=== PATIENT | female | born 1955 | race Caucasian/White ===

== ENCOUNTER 2017-04-26 12:48 | Emergency (ER) | payer MEDICAID ==
--- NOTE | 2017-04-26 13:05 | Emergency Department Record ---
History of Present Illness - General Chief complaint: Extremity Problem Stated complaint: LT LEG THIGH PAIN/NUMBNESS Time Seen by Provider: 04/26/17 12:52 Source: Patient Mode of Arrival: Ambulatory Limitations: No limitations - History of Present Illness Initial comments: 62 yo female presents to ED for evaluation of pain and numbness to the left anterior thigh for the past several days. Patient denies back pain or injury, reports taking Tylenol arthritis which has not helped much. Patient also reports taking left-over Cambridge for her symptoms which helped but worse off after 3 hours or so. Patient denies groin numbness, lower extremity weakness, or urinary retention symptoms. MD Complaint: Extremity pain Onset/Timin -: Days(s) Location: Thigh History of Same: No -: Yes Myalgia Radiation: None Quality: Aching Consistency: Constant Improves with: Nothing Worsens with: Nothing Associated Symptoms: Denies other symptoms - Related Data Home Medications Medication Instructions Recorded Confirmed Last Taken Aspirin [Lo-Dose Aspirin EC] 81 mg PO DAILY 04/26/17 04/26/17 04/26/17 Cetirizine HCl [Zyrtec] 10 mg PO DAILY 04/26/17 04/26/17 04/26/17 Famotidine [Pepcid] 40 mg PO ASDIR 04/26/17 04/26/17 04/26/17 Isosorbide Mononitrate [Imdur] 60 mg PO DAILY 04/26/17 04/26/17 04/26/17 Levothyroxine Sodium [Synthroid] 25 mcg PO DAILY 04/26/17 04/26/17 04/26/17 Lisinopril 20 mg PO DAILY 04/26/17 04/26/17 04/26/17 Metformin HCl [Metformin HCl ER] 500 mg PO DAILY 04/26/17 04/26/17 04/26/17 Metoprolol Succinate [Toprol Xl] 25 mg PO DAILY 04/26/17 04/26/17 04/26/17 Venlafaxine HCl [Venlafaxine HCl 75 mg PO ASDIR 04/26/17 04/26/17 04/26/17 ER] Previous Rx's Medication Instructions Recorded Hydrocodone/Acetaminophen [Cambridge 1 tab PO Q6H PRN #15 tab 04/26/17 10mg/325mg] Prednisone [Prednisone 20Mg] 20 mg PO BID #10 tab 04/26/17 Allergies Allergy/AdvReac Type Severity Reaction Status Date / Time shellfish derived Allergy HIVES Verified 04/26/17 13:03 [id number]-[id number] Reductase Allergy HIVES Verified 04/26/17 13:03 Inhibitor Review of Systems Constitutional: Denies: Chills, Fever, Malaise, Night sweats Eyes: Denies: Eye discharge, Eye pain ENT: Denies: Congestion, Ear pain, Epistaxis Respiratory: Denies: Cough, Dyspnea Cardiovascular: Denies: Chest pain, Dyspnea on exertion Endocrine: Denies: Fatigue, Heat or cold intolerance Gastrointestinal: Denies: Abdominal pain, Nausea, Vomiting Genitourinary: Denies: Incontinence, Retention Musculoskeletal: Reports: Myalgia. Denies: Arthralgia Skin: Denies: Bruising, Change in color Neurological: Denies: Confusion, Headache, Seizure Psychiatric: Denies: Anxiety Hematological/Lymphatic: Denies: Anemia, Blood Clots Physical Exam - General General Appearance: Alert, Oriented x3, Cooperative, Moderate distress Limitations: No limitations - Head Head exam: Atraumatic, Normocephalic, Normal inspection Head exam detail: negative: Abrasion, Contusion, Crum's sign, General tenderness, Hematoma, Laceration - Eye Eye exam: Normal appearance. negative: Conjunctival injection, Periorbital swelling, Periorbital tenderness, Scleral icterus - ENT Ear exam: negative: Auricular hematoma, Auricular trauma Nasal Exam: negative: Active bleeding, Discharge, Dried blood, Foreign body Mouth exam: negative: Drooling, Laceration, Muffled voice, Tongue elevation - Neck Neck exam: Normal inspection. negative: Meningismus, Tenderness - Respiratory Respiratory exam: Normal lung sounds bilaterally. negative: Rales, Respiratory distress, Rhonchi, Stridor - Cardiovascular Cardiovascular Exam: Regular rate, Normal rhythm, Normal heart sounds - GI/Abdominal GI/Abdominal exam: Soft. negative: Rebound, Rigid, Tenderness - Rectal Rectal exam: Deferred - exam: Deferred - Extremities Extremities exam: Normal inspection, Other (No tenderness to the left anterior thigh, no signs of infection, no posterior thight/popliteal/or calf pain symptoms on examination.). negative: Pedal edema, Tenderness - Back Back exam: Denies: CVA tenderness (R), CVA tenderness (L), Paraspinal tenderness - Neurological Neurological exam: Alert, Normal gait, Oriented X3, Other (Plantarflexion/ dorsiflexion 5/5 and symmtric bilaterally). negative: Motor sensory deficit - Psychiatric Psychiatric exam: Normal affect, Normal mood - Skin Skin exam: Normal color. negative: Abrasion Type of lesion: negative: abrasion Course - Reevaluation(s) Reevaluation #1: 04/26/17 13:26 MAPS reviewed, last prescription 11/17 for 20 Cambridge. Reevaluation #2: 04/26/17 14:18 Lumbar Spine: Osteopenia and degenerative changes, nothing acute. Patient was reassessed and reports that her pain symptoms are down to 2/10. Patient was updated on her radiology results, no evidence for spinal cord compression syndrome on examination, and her symptoms appear c/w sciatica. Patient appears stable for discharge on Cambridge and Prednisone with close follow- up for her symptoms in 2-3 days with her PCP. Disposition Disposition: Discharge Clinical Impression: Sciatica Qualifiers: Laterality: left Qualified Code(s): M54.32 - Sciatica, left side Disposition: Home, Self-Care Condition: (2) Stable Instructions: Lumbar Radiculopathy (ED) Additional Instructions: Return to ED if your symptoms worsen or if you have any concerns. Prednisone and Cambridge as directed. Follow-up with your family doctor in 2-3 days as directed. Prescriptions: Hydrocodone/Acetaminophen [Cambridge 10mg/325mg] 1 tab PO Q6H PRN #15 tab PRN Reason: Pain - General Prednisone [Prednisone 20Mg] 20 mg PO BID #10 tab Forms: Patient Portal Access Time of Disposition: 14:24 Quality - Quality Measures Quality Measures: N/A - Blood Pressure Screening Does Patient Have Any of the Following: Active Dx of HTN Blood Pressure Classification: Hypertensive Reading Systolic Measurement: 152 Diastolic Measurement: 108 Screening for High Blood Pressure: Patient Exclusion, Hx of HTN [[id number]]
[2017-04-26] MEDS ORDERED: HYDROMORPHONE HCL 2 MG/ML VIAL IM ONE (13:24)
[2017-04-26] MEDS ORDERED: METHYLPREDNISOLONE PF 125MG/VIAL IM ONE (13:24)
--- NOTE | 2017-04-28 03:27 | RADIOLOGY REPORT ---
DATE: 04/26/2017. EXAM: LUMBAR SPINE. HISTORY: Back pain. TECHNIQUE: Five views of the lumbar spine. COMPARISON: None. FINDINGS: Osteopenia. Five [id number] lumbar type vertebral bodies. Height and alignment are preserved. No discrete pars defects. Degenerative changes throughout the lumbar spine. Vascular calcifications. IMPRESSION: OSTEOPENIA. NO ACUTE OSSEOUS ABNORMALITY. MULTILEVEL DEGENERATIVE CHANGE. JOB NUMBER: [id number] MTDD
== END 2017-04-26 14:45 | disposition home or self-care (01) ==
LOC: ER 12:48
DX: M54.32 Sciatica, left side (principal)
CPT/HCPCS: 99283; 96372; 99284; 72110; J1170; J2930